=== PATIENT | male | born 1935 | race African-American/Black ===

== ENCOUNTER 2018-07-25 18:18 | Inpatient (IN) | payer MEDICARE, MEDICAID ==
[~2018-07-25] VITALS: Ht 182.9 cm; Wt 77.1 kg
--- NOTE | 2018-07-25 18:10 | NUR ---
ED Nurse Note: pt brought in by Shankar Vanessa from [facility], pt found on bus bench with empty alcohol bottles. pt states he lives at care home but unable to state the facility name. pt AA&ox4, gcs=15, skin warm and dry, resp even and unlabored on RA, -n/v/d at this time, will cont monitor.
--- NOTE | 2018-07-25 18:11 | NUR ---
ED Nurse Note: Bs=86 on field per EMS report.
--- NOTE | 2018-07-25 18:33 | Emergency Room Report ---
History of Present Illness General Chief Complaint: Alcohol Intoxication Source: Patient, EMS Present Illness HPI Patient is brought in by EMS. He was at a bus stop and had an empty bottle of alcohol with him. He agrees that he's been drinking alcohol. Apparently he resides at a residential facility. He doesn't know the name at this time. He denies any head trauma recently. No other history available as patient not answering questions. Allergies: Coded Allergies: No Known Allergies (Unverified , 07/25/18) Patient History Limited by: medical condition Past Medical History: see triage record Social History: Reports: alcohol use, drug use - THC Social History Narrative allegedly from Board and Care Reviewed Nursing Documentation: PMH: Agreed; PSxH: Agreed Nursing Documentation-PMH Past Medical History: No History, Except For Hx Diabetes: Yes Review of Systems All Other Systems: limited Physical Exam Vital Signs Date Time Temp Pulse Resp B/P (MAP) Pulse Ox O2 Delivery O2 Flow Rate FiO2 07/25/18 18:06 98.4 74 16 128/71 100 Room Air Sp02 EP Interpretation: reviewed, normal General Appearance: no apparent distress, alert, thin, Chronically Ill Head: normocephalic Eyes: bilateral eye PERRL, bilateral eye other - arcus ENT: moist mucus membranes Neck: supple Respiratory: lungs clear, normal breath sounds Cardiovascular #1: regular rate, rhythm Cardiovascular #2: 2+ radial (R) Gastrointestinal: normal inspection, normal bowel sounds, non tender, no mass, non-distended Musculoskeletal: back normal, normal range of motion, other - unsteady on feet Neurologic: alert, other - slurred speech, ataxic, oriented - X1 Psychiatric: other - depressed affect with poor rention of information Skin: normal inspection, warm/dry Medical Decision Making Medical: Alcohol Abuse Reaction to Intervention: Other - unpredictable Restraint Reassesment I, Jonathan Hunt MD, have personally evaluated this patient. Laboratory tests have been reviewed and addressed accordingly. The patient is deemed to present a danger to themselves and/or others. This is based on the exam, history and observation of behavior. Attempts for non-invasive measures have been considered and/or attempted, however, have been futile. It is in the best interest of the nursing staff, the patient, and others involved in this patient's care that behavioral restraints be applied. Patient evaluation reveals the following: Etoh breath, occasionally violent with staff Diagnostic Impression: Primary Impression: Elevated troponin Additional Impressions: UTI (urinary tract infection) Qualified Codes: N39.0 - Urinary tract infection, site not specified Acute alcoholic intoxication Qualified Codes: F10.929 - Alcohol use, unspecified with intoxication, unspecified Renal insufficiency Dementia Qualified Codes: F03.91 - Unspecified dementia with behavioral disturbance ER Course Patient presents with unsteady gaits and after drinking alcohol. Differential includes alcohol intoxication, acute myocardial infarction, left right imbalance amongst others. Patient needs evaluation with EKG, chest x-ray and labs. The patient will be treated with IV hydration. The patient is agitated but calms to my voice but still is not trustworthy and striking out at nursing staff. No-behavioral restraints are ordered. EKG without injury. CXR no infiltrate. Labs with normal WBC, slight anemia, elevated creatinine. Pyuria. Aspirin and nitrates given. Improved. but due to elevated troponin and pyuria, needs admission telemetry with repeat troponin levels, IV antibiotics and consultation with high school social studies tutor (where from). Attempting to leave. Unable to ambulate. Not remember discussing reasons for admission but easily re-directed. Admit Med - Dr. Romero. Laboratory Tests Test 07/25/18 18:49 White Blood Count 5.8 K/UL (4.8-10.8) Red Blood Count 4.48 M/UL (4.70-6.10) L Hemoglobin 10.6 G/DL (14.2-18.0) L Hematocrit 34.5 % (42.0-52.0) L Mean Corpuscular Volume 77 FL (80-99) L Mean Corpuscular Hemoglobin 23.7 PG (27.0-31.0) L Mean Corpuscular Hemoglobin Concent 30.9 G/DL (32.0-36.0) L Red Cell Distribution Width 15.9 % (11.6-14.8) H Platelet Count 192 K/UL (150-450) Mean Platelet Volume 5.2 FL (6.5-10.1) L Neutrophils (%) (Auto) 55.5 % (45.0-75.0) Lymphocytes (%) (Auto) 33.9 % (20.0-45.0) Monocytes (%) (Auto) 8.5 % (1.0-10.0) Eosinophils (%) (Auto) 0.8 % (0.0-3.0) Basophils (%) (Auto) 1.3 % (0.0-2.0) Urine Color Josefina Urine Appearance Clear Urine pH 6 (4.5-8.0) Urine Specific Lawrence 1.015 (1.005-1.035) Urine Protein 1+ (NEGATIVE) H Urine Glucose (UA) Negative (NEGATIVE) Urine Ketones Negative (NEGATIVE) Urine Blood Negative (NEGATIVE) Urine Nitrite Negative (NEGATIVE) Urine Bilirubin Negative (NEGATIVE) Urine Ictotest Negative (NEGATIVE) Urine Urobilinogen 1 MG/DL (0.0-1.0) H Urine Leukocyte Esterase 1+ (NEGATIVE) H Urine RBC 0-2 /HPF (0 - 0) H Urine WBC 10-15 /HPF (0 - 0) H Urine Squamous Epithelial Cells Occasional /LPF Urine Bacteria Few /HPF (NONE) Urine Mucus Many /LPF (NONE/OCC) H Sodium Level 143 MMOL/L (136-145) Potassium Level 3.9 MMOL/L (3.5-5.1) Chloride Level 105 MMOL/L (98-107) Carbon Dioxide Level 25 MMOL/L (21-32) Anion Gap 13 mmol/L (5-15) Blood Urea Nitrogen 14 mg/dL (7-18) Creatinine 1.4 MG/DL (0.55-1.30) H Estimate Glomerular Filtration Rate mL/min (>60) Glucose Level 86 MG/DL (74-106) Calcium Level 9.4 MG/DL (8.5-10.1) Total Bilirubin 0.4 MG/DL (0.2-1.0) Aspartate Amino Transferase (AST) 19 U/L (15-37) Alanine Aminotransferase (ALT) 11 U/L (12-78) L Alkaline Phosphatase 99 U/L (46-116) Total Creatine Kinase 124 U/L (26-308) Troponin I 0.058 ng/mL (0.000-0.056) Total Protein 8.5 G/DL (6.4-8.2) H Albumin 3.6 G/DL (3.4-5.0) Globulin 4.9 g/dL Albumin/Globulin Ratio 0.7 (1.0-2.7) L Urine Opiates Screen Negative (NEGATIVE) Urine Barbiturates Screen Negative (NEGATIVE) Phencyclidine (PCP) Screen Negative (NEGATIVE) Urine Amphetamines Screen Negative (NEGATIVE) Urine Benzodiazepines Screen Negative (NEGATIVE) Urine Cocaine Screen Negative (NEGATIVE) Urine Marijuana (THC) Screen Positive (NEGATIVE) H Serum Alcohol 212 mg/dL EKG Diagnostic Results Rate: normal Rhythm: NSR ST Segments: no acute changes Rhythm Strip Diag. Results EP Interpretation: yes Rhythm: NSR, no PVC's, no ectopy Chest X-Ray Diagnostic Results Chest X-Ray Diagnostic Results : Chest X-Ray Ordered: Yes # of Views/Limited/Complete: 1 View Indication: Other Interpretation: no consolidation, no effusion, no pneumothorax Impression: No acute disease Electronically Signed by: Jonathan Norris MD Last Vital Signs Date Time Temp Pulse Resp B/P (MAP) Pulse Ox O2 Delivery O2 Flow Rate FiO2 07/26/18 02:14 Room Air 07/26/18 00:01 74 07/26/18 00:00 97.0 20 149/84 (105) 98 Status: improved Disposition: ADMITTED INPATIENT Condition: Serious Jonathan Hunt MD Jul 25, 2018 18:33
[2018-07-25 18:37] VITALS: BP 132/85
--- NOTE | 2018-07-25 19:13 | NUR ---
HAND-OFF: Report given to Brigid BRENNER.
--- NOTE | 2018-07-25 19:14 | NUR ---
ED Nurse Note: Received report from Lisseth/ELIDIA. Pt is A/O X 3, CONFUSED AND HAVING BILTERAL WRISTS RESTRAIN ON. VSS.
[2018-07-25 19:27] LABS: APPEARANCE,URINE CLEAR; BILIRUBIN, URINE NEGATIVE (NEGATIVE); COLOR,URINE AMBER; GLUCOSE, URINE (UA) NEGATIVE (NEGATIVE); KETONES,URINE NEGATIVE (NEGATIVE); LEUKOCYTE ESTERASE ,URINE 1+ (NEGATIVE); NITRITE,URINE NEGATIVE (NEGATIVE); PH,URINE 6 (4.5-8.0); PROTEIN,URINE 1+ (NEGATIVE); UROBILINOGEN,URINE 1 MG/DL (0.0-1.0)
[2018-07-25 20:00] LABS: BASOPHILS % (AUTO) 1.3 % (0.0-2.0); EOSINOPHILS % (AUTO) 0.8 % (0.0-3.0); HEMATOCRIT 34.5 % (42.0-52.0); HEMOGLOBIN 10.6 G/DL (14.2-18.0); LYMPHOCYTES % (AUTO) 33.9 % (20.0-45.0); MEAN CORPUSCULAR VOLUME 77 FL (80-99); MONOCYTES % (AUTO) 8.5 % (1.0-10.0); NEUTROPHILS % (AUTO) 55.5 % (45.0-75.0); PLATELET COUNT 192 K/UL (150-450); RED BLOOD COUNT 4.48 M/UL (4.70-6.10); RED CELL DISTRIBUTION WIDTH 15.9 % (11.6-14.8); WHITE BLOOD COUNT 5.8 K/UL (4.8-10.8)
[2018-07-25] MEDS ORDERED: cefTRIAXone 1 GM in NS 55 ML IVPB ONE (20:00)
[2018-07-25 20:02] LABS: ANION GAP 13 mmol/L (5-15); BLOOD UREA NITROGEN 14 mg/dL (7-18); CALCIUM 9.4 MG/DL (8.5-10.1); CARBON DIOXIDE 25 MMOL/L (21-32); CHLORIDE 105 MMOL/L (98-107); CREATININE 1.4 MG/DL (0.55-1.30); POTASSIUM 3.9 MMOL/L (3.5-5.1); SODIUM 143 MMOL/L (136-145)
[2018-07-25 20:07] LABS: ALANINE AMINOTRANSFERASE 11 U/L (12-78); ALBUMIN 3.6 G/DL (3.4-5.0); ALBUMIN/GLOBULIN RATIO 0.7 (1.0-2.7); ALKALINE PHOSPHATASE 99 U/L (46-116); ASPARTATE AMINO TRANSFERASE 19 U/L (15-37); BILIRUBIN,TOTAL 0.4 MG/DL (0.2-1.0); CREATINE KINASE 124 U/L (26-308)
--- NOTE | 2018-07-25 20:28 | Diagnostic Imaging Report ---
EXAM: XR Chest, 1 View CLINICAL HISTORY: ALOC TECHNIQUE: Frontal view of the chest. COMPARISON: none FINDINGS: Lungs: Unremarkable. No consolidation. Pleural space: Unremarkable. No pneumothorax. Heart: Unremarkable. No cardiomegaly. Mediastinum: Unremarkable. Bones/joints: Unremarkable. IMPRESSION: No acute cardiopulmonary process.
[2018-07-25] MEDS ORDERED: Nitroglycerin 2% oint pkt TOPIC ONE (20:45)
--- NOTE | 2018-07-25 20:54 | NUR ---
ED Nurse Note: Pt moved to room 7#, report given to Kaycee /RN for continue care. Pt is A/O X 4. VSS. Restrain d/c'd and pt promised will cooperate at this time.
[2018-07-25] MEDS ORDERED: Milk of Magnesia 30ml Ud ORAL PRN (22:30)
[2018-07-25] MEDS ORDERED: Zolpidem 5mg tab ORAL PRN (22:30)
--- NOTE | 2018-07-25 22:35 | NUR ---
ED Nurse Note: Patient pulled out both IVs out, patient signed AMA form. Dr. Hunt states that he is not able to leave. Charge nurse aware.
[2018-07-25] MEDS ORDERED: Zoysn 3.37gm in NS 100ML IVPB SCH (22:45)
--- NOTE | 2018-07-25 22:50 | NUR ---
ED Nurse Note: Able to put 18 gauge on patients left AC. patent and intact
--- NOTE | 2018-07-25 23:00 | NUR ---
TRANSFER TO FLOOR: Patient transferred to Telemetry as ordered, per . Report given to ELIDIA Hood.
--- NOTE | 2018-07-25 23:01 | NUR ---
ED Nurse Note: Patient's blood pressure was 170/104. Dr Hunt states patient is okay to go up, patient will be given 5mg norvasc
[2018-07-25 23:07] VITALS: BP 170/104
[2018-07-26] VITALS: BP 149/84
--- NOTE | 2018-07-26 | NUR ---
Pt arrived on unit. Got report from Agustín or Conrado BRENNER. Initial Assessment done. Pt A+O x 1-2 on initial assessment. Vital Signs BP:149/84 T:97 HR:72 R:20 O2:98% on room air. Denies any pain. No s/s of distress or discomfort noted. Pt resting in bed comfortably. Bed in low and locked position, call light within reach, bedside table within reach. Continue to monitor.
[2018-07-26 04:20] VITALS: BP 137/85
[2018-07-26] MEDS ORDERED: Zoysn 3.37gm in NS 100ML IVPB SCH (06:00)
[2018-07-26] MEDS ORDERED: Piperacillin/Tazobactam 2.25 GM in D5W 55 ML IVPB SCH (06:00)
[2018-07-26 06:52] LABS: BASOPHILS % (AUTO) 1.7 % (0.0-2.0); EOSINOPHILS % (AUTO) 2.4 % (0.0-3.0); LYMPHOCYTES % (AUTO) 32.6 % (20.0-45.0); MEAN CORPUSCULAR VOLUME 77 FL (80-99); MONOCYTES % (AUTO) 10.6 % (1.0-10.0); NEUTROPHILS % (AUTO) 52.8 % (45.0-75.0); PLATELET COUNT 236 K/UL (150-450); RED BLOOD COUNT 4.14 M/UL (4.70-6.10); RED CELL DISTRIBUTION WIDTH 15.8 % (11.6-14.8); WHITE BLOOD COUNT 3.6 K/UL (4.8-10.8)
[2018-07-26 07:02] LABS: ANION GAP 11 mmol/L (5-15); BLOOD UREA NITROGEN 15 mg/dL (7-18); CALCIUM 8.8 MG/DL (8.5-10.1); CARBON DIOXIDE 26 MMOL/L (21-32); CHLORIDE 109 MMOL/L (98-107); CHOLESTEROL 129 MG/DL (< 200); CREATININE 1.3 MG/DL (0.55-1.30); HDL CHOLESTEROL 61 MG/DL (40-60); POTASSIUM 3.8 MMOL/L (3.5-5.1); SODIUM 146 MMOL/L (136-145); TRIGLYCERIDES 131 MG/DL (30-150)
[2018-07-26 08:00] VITALS: BP 179/98
--- NOTE | 2018-07-26 08:00 | NUR ---
HAND-OFF: Report given to Marine BRENNER. Endorsed plan of care.
--- NOTE | 2018-07-26 08:01 | NUR ---
NURSE NOTES: Received report from ELIDIA Eaton. Patient in bed resting, no active s/s cardiac, respiratory distress noticed at this time, SR with HR 89, denies pain at this time, AOx2. IV on left AC 18G, IV running at prescribed rate, asymptomatic, patent, intact. Bed in lowest position, side rails upx2, call light within reach. Will continue to monitor.
--- NOTE | 2018-07-26 08:20 | NUR ---
NURSE NOTES: Dr. Romero made aware and acknowledged patient troponin level elevated from 0.058 yesterday to 0.064 today, denies chest pain. No order given at this time. Will continue to monitor.
--- NOTE | 2018-07-26 11:00 | NUR ---
NURSE NOTES: Dr. Romero at the nursing station made aware patient has high BP of 179/98, HR73. Per Dr. Romero will take care. Avapro 150mg PO once ordered. Avapro dministered and BP down to 152/105, HR 77.
--- NOTE | 2018-07-26 11:06 | History & Physical ---
History and Physical History & Physicial HP dictated # [id number] Carlos Romero MD Jul 26, 2018 11:06
[2018-07-26 12:00] VITALS: BP 152/105
[2018-07-26] MEDS ORDERED: Irbesartan 150mg tablet ORAL SCH (12:00)
--- NOTE | 2018-07-26 14:54 | NUR ---
PT Note PT eval completed, tx initiated. Patient is cooperative. No c/o pain. Has an unsteady gait. Patient can benefit from PT services to increase his muscle strength and balance to improve his safety in mobility and gait. Addendum: 07/26/18 at 1455 by YOEL JOSÉ PT Amended: Links added.
--- NOTE | 2018-07-26 15:33 | NUR ---
CASE MANAGEMENT: INITIAL REVIEW 07/25/2018 82 YO M [address] C/O ETOH INTOXICATION PMHx: DM. SI:ELEVATED TROPONIN. UTI. T 98.4 HR 74 RR 16 B/P 128/71 SATS 100% ON RA CR 1.4 ALT 11 TROPONIN 0.058 U TOX (THC) IS: NS BOLUS X1 CEFTRIAXONE IV X1 ASA PO X1 NITRO BID TOP X1 PATIENT ADMITTED TO TELE 07/25/2018 @ 8489 DCP: PATIENT TO BE DISCHARGED TO APPROPRIATE LOCATION ONCE MEDICALLY CLEARED. PLAN OF CARE: PT EVAL 07/26/2018 SI:ELEVATED TROPONIN. UTI. T 97 HR 77 RR 20 B/P 152/105 SATS 100% ON RA WBC 3.6 NA 146 CL 109 TROPONIN 0.064 IS: CIPRO PO Q12H AVAPRO PO QD TELE STATUS DCP: PATIENT TO BE DISCHARGED TO APPROPRIATE LOCATION ONCE MEDICALLY CLEARED. PLAN OF CARE: PT EVAL Addendum: 07/26/18 at 1542 by Abril Palmer CM SERUM ALCOHOL 212
[2018-07-26 16:00] VITALS: BP 173/97
--- NOTE | 2018-07-26 16:30 | History and Physical Report ---
DATE OF ADMISSION: 07/25/2018 CHIEF COMPLAINT: The patient was brought in by paramedics apparently for alcohol intoxication. HISTORY OF PRESENT ILLNESS: This is an 82-year-old male who is a poor historian. Per ER records, the patient was at bus stop and had a empty bottle of alcohol with him. He tells me now that he was drinking only one beer. He was brought into the emergency room, was found to have alcohol intoxication and was admitted. In addition, the patient was diagnosed with urinary tract infection. PAST MEDICAL HISTORY: Includes history of hypertension and diabetes, but he denies both. ALLERGIES: No known drug allergies. REVIEW OF SYSTEMS: Noncontributory. PHYSICAL EXAMINATION: GENERAL: The patient is an elderly male, in no acute distress. VITAL SIGNS: Blood pressure is 179/98, pulse is 72, respiratory rate is 20, and temperature 96.3. HEENT: Somewhat pale conjunctivae. Anicteric sclerae. NECK: Supple. LUNGS: Clear to auscultation. HEART: S1 and S2 without murmurs or rubs. ABDOMEN: Soft and nontender. EXTREMITIES: No cyanosis or edema. LABORATORY FINDINGS: The CBC shows a WBC of 3600, hematocrit is 32, hemoglobin is 10, and platelet is 236,000. The chemistry panel shows a serum sodium of 146, potassium 3.8, chloride 109, CO2 26, BUN is 15, and creatinine 1.3. The patient had a troponin level at 0.05 yesterday and is 0.06 today. LDL is 47, HDL is 61, and TSH is 2.679. The UA shows 1+ protein and 10 to 15 wbc's per high-power field. The patient had a toxicology screen yesterday, it showed serum alcohol of 212 and positive for marijuana. ASSESSMENT: This is an 82-year-old -[place] male, who was admitted with alcohol intoxication. He has a urinary tract infection. He is slightly anemic. He has uncontrolled hypertension. PLAN: The patient will be on antibiotics. He is going to be on monitored bed and IV hydration. The patient will be on blood pressure medications and it will be adjusted. Carlos Romero M.D. DR: MELINA JOB#: [id number] CC:
--- NOTE | 2018-07-26 16:43 | NUR ---
NURSE NOTES: Dr. Romero made aware one dose of irbesartan 150 mggiven at 1230, patient BP re-elevated from 152/105 to 173/97. Per Dr. Romero, increase irbesartan 150 mg daily to BID. Order noted, entered, carried out. Will continue to monitor.
[2018-07-26] MEDS: Irbesartan 150mg tablet ORAL SCH (17:26)
--- NOTE | 2018-07-26 18:43 | NUR ---
NURSE NOTES: Dr. Romero made aware second dose of irbesartan given at 1730, BP did not go down but up from 173/97 to 192/106. Per Dr. Romero, amlodipine 5 mg daily, Doctor stated do not check BP 10 pm to 6 am and no further given at this time. Order noted, entered, carried out.
--- NOTE | 2018-07-26 19:30 | NUR ---
HAND-OFF: Report given to ELIDIA Eaton.
--- NOTE | 2018-07-26 19:30 | Consultation ---
DATE OF CONSULTATION: 07/26/2018 INFECTIOUS DISEASES CONSULTATION CONSULTING PHYSICIAN: Jose G Romero M.D. PRIMARY ATTENDING PHYSICIAN: Carlos Romero M.D. REASON FOR CONSULTATION: Pyuria and UTI. HISTORY OF PRESENT ILLNESS: This is an 82-year-old male admitted yesterday and he [place], unresponsive, had an empty bottle of alcoholic drink. Currently, has no complaint. PAST MEDICAL HISTORY: Likely has hypertension. He states that he is homeless. History of alcohol abuse. ALLERGIES: No known drug allergies. MEDICATIONS: Getting irbesartan, Avapro, Zosyn, Tylenol, milk of magnesia, . SOCIAL HISTORY: Homeless. He has no relatives, single. He uses marijuana and alcohol. REVIEW OF SYSTEMS: The patient denies any fever, chills, coughing, nausea, or vomiting. Denies any problem passing urine. He has back pain. PHYSICAL EXAMINATION: VITAL SIGNS: Temperature 96.3, pulse 73, and blood pressure 179/98. GENERAL APPEARANCE: No acute distress. HEAD AND NECK: [place] conjunctivae. HEART: Regular. LUNGS: Clear. ABDOMEN: Soft and nontender. EXTREMITIES: No edema. Troponin is 0.064. Sodium 146, potassium 2.8, chloride 109, bicarbonate 26, BUN 15, and creatinine 1.3. TSH is 2.67. Urine toxicology was positive for marijuana. WBC 3.6, hemoglobin 10, hematocrit 32, and platelets 236,000. UA showed WBC of 10 to 15. Urine culture so far is negative. IMPRESSION: 1. Pyuria, try to rule out UTI. 2. Alcohol intoxication. 3. Anemia. 4. Hypertension. RECOMMENDATION: Discontinue Zosyn. Start on Cipro. If the culture remains negative, we will stop antibiotics soon. At the end of my exam, I thank Dr. Carlos Romero for involving me in the care of this patient. Jose G Romero M.D. DR: YESI JOB#: [id number] CC: [place]
--- NOTE | 2018-07-26 19:31 | NUR ---
NURSE NOTES: Got report from Marine BRENNER. Pt in stable condition. Denies any pain. No s/s of distress noted. Pt resting in bed comfortably. Bed in low and locked position, call light within reach, bedside table within reach. Continue to monitor.
[2018-07-26 20:00] VITALS: BP 163/92
[2018-07-26] MEDS: Ciprofloxacin 500mg tab ORAL SCH (20:39)
[2018-07-27] VITALS: BP 121/71
[2018-07-27 04:12] VITALS: BP 136/87
--- NOTE | 2018-07-27 07:29 | NUR ---
NURSE NOTES: Received report from ELIDIA Eaton. Patient in bed resting, no active s/s cardiac, respiratory distress noticed at this time, denies pain at this time. Patient AOx4, on room air, SR with HR 74. IV on left AC 18G asymptomatic, patent, intact. Endorsed stable BP during night SBP 130s. Bed in lowest position, side rails upx2, urinal within easy reach, call light within reach. Will continue to monitor.
[2018-07-27 08:00] VITALS: BP 127/83
[2018-07-27] MEDS: Ciprofloxacin 500mg tab ORAL SCH ×2 (08:06→20:44)
[2018-07-27] MEDS: Irbesartan 150mg tablet ORAL SCH ×2 (08:06→18:14)
[2018-07-27] MEDS ORDERED: Irbesartan 150mg tablet ORAL SCH (09:00)
[2018-07-27 12:00] VITALS: BP_SYST 144; BP_SYST 152; BP_DIAS 88; BP_DIAS 93
--- NOTE | 2018-07-27 12:00 | Infectious Diseases Prog Note ---
Assessment/Plan Assessment/Plan antibiotics : ciprofloxacin A 1. UTI 2. hypertension 3. anemia P 1. continue ciprofloxacin 2. will follow up cultures Subjective Constitutional: Denies: fever, chills Respiratory: Denies: shortness of breath, dry cough Gastrointestinal/Abdominal: Denies: nausea, vomiting, diarrhea Musculoskeletal: Denies: pain Allergies: Coded Allergies: No Known Allergies (Unverified , 07/25/18) Objective Vital Signs Last 24 Hour Vital Signs Date Time Temp Pulse Resp B/P (MAP) Pulse Ox O2 Delivery O2 Flow Rate FiO2 07/27/18 09:00 Room Air 07/27/18 08:06 82 127/83 07/27/18 08:06 127/83 07/27/18 08:00 97.3 83 18 127/83 (98) 97 07/27/18 08:00 84 07/27/18 04:29 74 07/27/18 04:12 98.4 76 18 136/87 (103) 98 07/27/18 00:37 62 07/27/18 00:00 98.1 63 18 121/71 (88) 99 07/26/18 21:00 Room Air 07/26/18 20:41 73 163/92 07/26/18 20:00 65 07/26/18 20:00 99.0 73 18 163/92 (115) 98 07/26/18 17:26 173/97 07/26/18 16:00 68 07/26/18 16:00 97.4 68 20 173/97 (122) 100 07/26/18 12:52 179/98 07/26/18 12:00 71 07/26/18 12:00 97.0 77 20 152/105 (121) 100 Height (Feet): 6 Height (Inches): 0.00 Weight (Pounds): 170 Respiratory/Chest: lungs clear Cardiovascular: normal rate, regular rhythm, no gallop/murmur Abdomen: soft, non tender Extremities: no edema Microbiology Date/Time Source Procedure Growth Status 07/25/18 18:49 Urine,Clean Catch Urine Culture - Preliminary NO GROWTH AFTER 24 HOURS Resulted Current Medications Medications (Trade) Dose Ordered Sig/Derrick Route PRN Reason Start Time Stop Time Status Last Admin Dose Admin Acetaminophen (Tylenol) 650 mg Q4H PRN ORAL Mild Pain (Pain Scale 1-3) 07/25/18 22:30 08/24/18 22:29 Amlodipine Besylate (Norvasc) 5 mg DAILY ORAL 07/26/18 21:00 08/25/18 20:59 07/27/18 08:06 Ciprofloxacin (Cipro 500mg tab) 500 mg EVERY 12 HOURS ORAL 07/26/18 21:00 08/02/18 20:59 07/27/18 08:06 Dextrose (Dextrose 50%) 25 ml Q30M PRN IV Hypoglycemia 07/25/18 22:30 08/24/18 22:29 Dextrose (Dextrose 50%) 50 ml Q30M PRN IV Hypoglycemia 07/25/18 22:30 08/24/18 22:29 Irbesartan (Avapro) 150 mg BID ORAL 07/26/18 18:00 08/26/18 08:59 07/27/18 08:06 Magnesium Hydroxide (Mom) 30 ml HSPRN PRN ORAL Constipation 07/25/18 22:30 08/24/18 22:29 Zolpidem Tartrate (Ambien) 5 mg DAILYPRN PRN ORAL Insomnia 07/25/18 22:30 08/01/18 22:29 Tonny Dillon MD Jul 27, 2018 12:00
--- NOTE | 2018-07-27 12:04 | NUR ---
*-* INSURANCE *-* ALL CLINICALS HAVE BEEN FAXED TO: [facility] ASHLIE F:[phone]
--- NOTE | 2018-07-27 12:44 | Cardiology Report ---
APPROVED REPORT EKG Measurement Heart [id number] Suspect arm lead reversal, interpretation assumes no reversal Normal sinus rhythm with sinus arrhythmia Non-specific ST-T abn Lateral infarct, age undetermined Abnormal ECG
--- NOTE | 2018-07-27 13:07 | General Progress Note ---
Assessment/Plan Problem List: (1) Acute alcoholic intoxication ICD Codes: F10.929 - Alcohol use, unspecified with intoxication, unspecified SNOMED: 19891099 (2) UTI (urinary tract infection) ICD Codes: N39.0 - Urinary tract infection, site not specified SNOMED: 73863925 (3) Elevated troponin ICD Codes: R74.8 - Abnormal levels of other serum enzymes SNOMED: 923866537, 745254148, 793577368 Assessment/Plan abxs Discussed with ELIDIA PALMA in AM Subjective Allergies: Coded Allergies: No Known Allergies (Unverified , 07/25/18) Subjective ok Objective Last 24 Hour Vital Signs Date Time Temp Pulse Resp B/P (MAP) Pulse Ox O2 Delivery O2 Flow Rate FiO2 07/27/18 09:00 Room Air 07/27/18 08:06 82 127/83 07/27/18 08:06 127/83 07/27/18 08:00 97.3 83 18 127/83 (98) 97 07/27/18 08:00 84 07/27/18 04:29 74 07/27/18 04:12 98.4 76 18 136/87 (103) 98 07/27/18 00:37 62 07/27/18 00:00 98.1 63 18 121/71 (88) 99 07/26/18 21:00 Room Air 07/26/18 20:41 73 163/92 07/26/18 20:00 65 07/26/18 20:00 99.0 73 18 163/92 (115) 98 07/26/18 17:26 173/97 07/26/18 16:00 68 07/26/18 16:00 97.4 68 20 173/97 (122) 100 Intake and Output 07/26/18 07/27/18 19:00 07:00 Intake Total 700 ml Output Total 1400 ml 1000 ml Balance -700 ml -1000 ml Intake Oral 700 ml Output Urine Total 1400 ml 1000 ml Height (Feet): 6 Height (Inches): 0.00 Weight (Pounds): 170 Cardiovascular: normal rate Respiratory/Chest: lungs clear Edema: no edema noted Generalized Carlos Romero MD Jul 27, 2018 13:07
--- NOTE | 2018-07-27 15:29 | NUR ---
Social Service Note SW met with patient to asses for homelessness. Patient is alert, oriented and verbally responsive. Patient states he is not homeless and upon discharge is has a bus pass to get him to his home location. Patient states he resides in [place] and is able to stay with people in [place] from time to time. Patient sates he doesn't require assistance upon discharge and is hoping to be discharged today. Patient states he doesn't have an emergency contact or next of kin to list. Patient states the address on the face sheet is wrong and that he hasn't lived at that location in years. Patient not receptive to community resources and is anxious for discharge. Patient states his medical care is from a clinic on [place] [facility] but he cannot recall name or phone number. Patient will make his own arrangements upon discharge. SW will be available as needed.
--- NOTE | 2018-07-27 15:35 | NUR ---
CASE MANAGEMENT:REVIEW 07/27/18 SI: ACUTE ALCOHOLIC INTOXICATION UTI. ELEVATED TROPONIN 97.3 83 18 127/83 97% ON RA LAST TROPONIN(+) 0.064 IS: CIPRO PO Q12 NORVASC PO QD AVAPRO PO BID : TELEMETRY STATUS
[2018-07-27 16:00] VITALS: BP 152/88
--- NOTE | 2018-07-27 19:47 | NUR ---
HAND-OFF: Report given to ELIDIA Khanna.
--- NOTE | 2018-07-27 19:48 | NUR ---
NURSE NOTES: Received bedside report from ELIDIA Hawthorne.Patient stable,A&Ox4,SR on hospital monitor,tolerated r/air well,ambulatory stable,no c/o pain,no respiratory distress noted,BS active in all quadrants,bed secured in a low safety position,call light within a reach,will continue to monitor and follow POC.
[2018-07-27 20:00] VITALS: BP 133/88
[2018-07-28] VITALS: BP 127/84
[2018-07-28 04:00] VITALS: BP 108/64
--- NOTE | 2018-07-28 07:10 | NUR ---
HAND-OFF: Report given to ELIDIA Camarillo.Patient stable.
--- NOTE | 2018-07-28 07:11 | NUR ---
NURSE NOTES: Received patient from ELIDIA Khanna. Patient VS stable at this time with no sign of acute distress. patient alert and oriented at this time. Patient sitting up to eat breakfast. Patient denies pain at this time. Patient uses urinal to void. Patient showing sinus rhythm on the nuclear monitoring technician. Patient on RA with no sign of respiratory distress. Patient has a left AC 18G PIV that is patent and asymptomatic at this time. Patient bed in low position. Patient ambulates on his own with steady gait. No labs drawn today. Will follow up with primary MD. Patient was admitted for increased troponin. No troponin level has been drawn today.
[2018-07-28 08:00] VITALS: BP 126/84
--- NOTE | 2018-07-28 08:48 | NUR ---
CASE MANAGEMENT:REVIEW 07/28/18 SI: ACUTE ALCOHOLIC INTOXICATION UTI. ELEVATED TROPONIN 98.5 97 20 126/84 97% ON RA IS: CIPRO PO Q12 NORVASC PO QD AVAPRO PO BID : TELEMETRY STATUS DCP: PATIENT IS FROM HOME PLAN: POSSIBLE DC TODAY AFTER DOCTOR MAKES HIS ROUNDS
[2018-07-28] MEDS: Ciprofloxacin 500mg tab ORAL SCH (08:58)
[2018-07-28] MEDS: Irbesartan 150mg tablet ORAL SCH (08:59)
--- NOTE | 2018-07-28 11:22 | Infectious Diseases Prog Note ---
Assessment/Plan Assessment/Plan A 1. UTI treated 2. hypertension 3. anemia P 1. Discontinue ciprofloxacin 2. will follow up cultures Subjective ROS Limited/Unobtainable: No Constitutional: Reports: no symptoms HEENT: Reports: no symptoms Respiratory: Reports: no symptoms Cardiovascular: Reports: no symptoms Gastrointestinal/Abdominal: Reports: no symptoms Genitourinary: Reports: no symptoms Allergies: Coded Allergies: No Known Allergies (Unverified , 07/25/18) Objective Vital Signs Last 24 Hour Vital Signs Date Time Temp Pulse Resp B/P (MAP) Pulse Ox O2 Delivery O2 Flow Rate FiO2 07/28/18 09:00 Room Air 07/28/18 08:59 97 126/84 07/28/18 08:59 126/84 07/28/18 08:00 104 07/28/18 08:00 98.5 97 20 126/84 (98) 97 07/28/18 04:00 98.0 77 18 108/64 (79) 97 07/28/18 03:53 68 07/28/18 00:00 97.9 86 18 127/84 (98) 98 07/27/18 23:45 80 07/27/18 21:00 Room Air 07/27/18 20:00 97.7 80 18 133/88 (103) 97 07/27/18 19:30 98 07/27/18 18:14 152/88 07/27/18 16:00 97.2 60 18 152/88 (109) 97 07/27/18 16:00 59 07/27/18 12:00 98.1 79 20 144/93 (110) 100 07/27/18 12:00 85 Height (Feet): 6 Height (Inches): 0.00 Weight (Pounds): 170 General Appearance: no acute distress HEENT: mucous membranes moist Respiratory/Chest: lungs clear Cardiovascular: normal rate Abdomen: soft, non tender Extremities: no edema Neurologic/Psychiatric: alert, responsive Microbiology Date/Time Source Procedure Growth Status 07/25/18 18:49 Urine,Clean Catch Urine Culture - Final NO GROWTH AFTER 48 HOURS Complete Current Medications Medications (Trade) Dose Ordered Sig/Derrick Route PRN Reason Start Time Stop Time Status Last Admin Dose Admin Acetaminophen (Tylenol) 650 mg Q4H PRN ORAL Mild Pain (Pain Scale 1-3) 07/25/18 22:30 08/24/18 22:29 Amlodipine Besylate (Norvasc) 5 mg DAILY ORAL 07/26/18 21:00 08/25/18 20:59 07/28/18 08:59 Ciprofloxacin (Cipro 500mg tab) 500 mg EVERY 12 HOURS ORAL 07/26/18 21:00 08/02/18 20:59 07/28/18 08:58 Dextrose (Dextrose 50%) 25 ml Q30M PRN IV Hypoglycemia 07/25/18 22:30 08/24/18 22:29 Dextrose (Dextrose 50%) 50 ml Q30M PRN IV Hypoglycemia 07/25/18 22:30 08/24/18 22:29 Irbesartan (Avapro) 150 mg BID ORAL 07/26/18 18:00 08/26/18 08:59 07/28/18 08:59 Magnesium Hydroxide (Mom) 30 ml HSPRN PRN ORAL Constipation 07/25/18 22:30 08/24/18 22:29 Zolpidem Tartrate (Ambien) 5 mg DAILYPRN PRN ORAL Insomnia 07/25/18 22:30 08/01/18 22:29 Jose G Romero MD Jul 28, 2018 11:22
[2018-07-28 12:00] VITALS: BP 132/84
--- NOTE | 2018-07-28 13:54 | NUR ---
*-* INSURANCE *-* ALL CLINICALS HAVE BEEN FAXED TO: [facility] F:[phone]
--- NOTE | 2018-07-28 14:07 | NUR ---
NURSE NOTES: community mental health social worker note reviewed. Patient does not want any community services. Patient states that he has a place that he can stay. Patient stated that he has a bus pass and money to get where he needs to go. Patient then showed me his money and showed me his bus pass. Dr Romero notified and stated that he will discharge the patient today.
[2018-07-28] MEDS ORDERED: NORVASC5 MG ORAL (14:19)
[2018-07-28] MEDS ORDERED: AVAPRO150 MG ORAL (14:19)
--- NOTE | 2018-07-28 14:21 | General Progress Note ---
Assessment/Plan Problem List: (1) Acute alcoholic intoxication ICD Codes: F10.929 - Alcohol use, unspecified with intoxication, unspecified SNOMED: 90141867 Qualifiers: Qualified Codes: F10.929 - Alcohol use, unspecified with intoxication, unspecified (2) UTI (urinary tract infection) ICD Codes: N39.0 - Urinary tract infection, site not specified SNOMED: 57328932 Qualifiers: Qualified Codes: N39.0 - Urinary tract infection, site not specified (3) Elevated troponin ICD Codes: R74.8 - Abnormal levels of other serum enzymes SNOMED: 892558242, [id number], [id number] Assessment/Plan Dc today Subjective Allergies: Coded Allergies: No Known Allergies (Unverified , 07/25/18) Subjective ok Objective Last 24 Hour Vital Signs Date Time Temp Pulse Resp B/P (MAP) Pulse Ox O2 Delivery O2 Flow Rate FiO2 07/28/18 12:00 78 07/28/18 12:00 96.5 81 20 132/84 (100) 99 07/28/18 09:00 Room Air 07/28/18 08:59 97 126/84 07/28/18 08:59 126/84 07/28/18 08:00 104 07/28/18 08:00 98.5 97 20 126/84 (98) 97 07/28/18 04:00 98.0 77 18 108/64 (79) 97 07/28/18 03:53 68 07/28/18 00:00 97.9 86 18 127/84 (98) 98 07/27/18 23:45 80 07/27/18 21:00 Room Air 07/27/18 20:00 97.7 80 18 133/88 (103) 97 07/27/18 19:30 98 07/27/18 18:14 152/88 07/27/18 16:00 97.2 60 18 152/88 (109) 97 07/27/18 16:00 59 Intake and Output 07/27/18 07/28/18 19:00 07:00 Intake Total 480 ml 100 ml Output Total 200 ml 650 ml Balance 280 ml -550 ml Intake Oral 480 ml 100 ml Output Urine Total 200 ml 650 ml # Voids 2 Height (Feet): 6 Height (Inches): 0.00 Weight (Pounds): 170 Carlos Romero MD Jul 28, 2018 14:21
--- NOTE | 2018-07-28 15:10 | NUR ---
NURSE NOTES: Patient IV removed. Arm band removed. Patient denies pain or discomfort. Patient stable, VS stable. Discharge instruction given. Patient expressed understanding. Medications delivered from out patient pharmacy across the street. Patient asked again if he wants transportation arranged for him. Patient declines. Patient wheeled in wheel chair out to the bus stop. Patient states that he can make his way from there and needs no assistance standing up.
--- NOTE | 2018-07-30 12:08 | Discharge Summary ---
Discharge Summary Discharge Summary _ DATE OF ADMISSION: 07/25/2018 DATE OF DISCHARGE: 07/28/2018 DISCHARGED BY: Dr. Romero REASON FOR ADMISSION: 82 years old male with past medical history of hypertension, diabetes, was brought in ED by paramedics for acute alcohol intoxication. Patient was picked up by paramedics, when he was on the bus stop and had an empty bottle of alcohol next to him. Upon evaluation in emergency department vital signs were stable. Patient admitted to using alcohol , but stated that he only drinks beer. Patient denied any head trauma recently , but overall was a poor historian Laboratory workup revealed no leukocytosis, hemoglobin 10.6, hematocrit 34.5. Platelet count 192. Urinalysis revealed pyuria and few bacteria. Chemistry demonstrated stable electrolytes, BUN 14, creatinine 1.4. Glucose 86. Stable LFT and CK. Troponin -0.058. Albumin 3.6 . EKG revealed sinus rhythm with sinus arrhythmia. No acute ischemic changes. Urine toxicology screen was positive for marijuana. Serum alcohol level - 212 Chest x-ray demonstrated no acute cardiopulmonary pathology. Patient was admitted for further management. HOSPITAL COURSE: Patient admitted to monitored floor. Patient started on IV hydration. Anxiolytic were on board as needed for possible withdrawal. Second troponin with mild elevation as well. EKG revealed no acute ischemic changes. Pulse oximetry was stable on room air. Patient denies chest pain and palpitations. Troponin pattern was not suggestive of acute coronary syndrome. Elevated troponin was possibly due to acute alcohol intoxication. Lipid panel was stable. TSH within normal limits. ID consult was requested for possible UTI . Patient started on empiric antibiotic . Urine culture was negative . Blood pressure was managed with angiotensin receptor debra and calcium channel debra , doses were titrated to keep blood pressure under control , since blood pressure later upon admission became uncontrolled . Hemoglobin and hematocrit were closely monitored with goal to keep hemoglobin above 7 . Hemoglobin and hematocrit remained at baseline . Prior to discharge hemoglobin 10 , hematocrit 32. Renal parameters and electrolytes were closely monitored. With IV hydration creatinine from 1.4 down to 1.3 . Patient was counseled on abstinence from alcohol and illicit street drugs. computer recycling worker met with patient to assess for homelessness . Patient reported that he was not homeless , and upon discharge prefer to have a bus token to get to his home location. Patient reported residing in [place]. Patient declined any assistance upon discharge. Patient reported that he received medical care from the community clinic at [place] and [facility], but was not able to recall the name or phone number. Patient will make his own arrangements upon discharge. Patient clinically stabilized and was ready for discharge home. FINAL DIAGNOSES: Acute alcohol intoxication Anemia Hypertension UTI, s/p treatment DISCHARGE MEDICATIONS: See Medication Reconciliation list. DISCHARGE INSTRUCTIONS: Patient was discharged home . Follow up with primary care provider/clinic in one week I have been assigned to dictate discharge summary for this account. I was not involved in the patient's management. Radha Wick NP Jul 30, 2018 12:08
== END 2018-07-28 15:35 | disposition home or self-care (01) | DRG 775 ==
LOC: EDBD 18:18 → EMR 19:24 → EDBEDREQ 22:05 → 2E 22:19
DX: F10.129 Alcohol abuse with intoxication, unspecified (principal); E11.9 Type 2 diabetes mellitus without complications; D64.9 Anemia, unspecified; N39.0 Urinary tract infection, site not specified; I10 Essential (primary) hypertension
CPT/HCPCS: 36415; 71045; 80048; 80053; 80061; 80307; 80329; 81003; 82550; 83036; 83735; 84443; 84484; 85025; 87086; 93005; 96361; 96365; 99285